=== PATIENT | female | born 1995 | race Caucasian/White ===

== ENCOUNTER 2023-04-18 10:29 | Day surgery (SDC) | payer BC ==
[~2023-04-18 10:29] MED LIST: Lactated Ringers 1,000 ML IV SCH
[2023-04-18] MEDS ORDERED: Ondansetron 4 MG/2 ML SDV ONE (11:18)
[2023-04-18] MEDS ORDERED: Propofol 200 MG/20 ML SDV ONE ×2 (11:18→11:21)
[2023-04-18] MEDS ORDERED: Lidocaine 2% 100 MG/5 ML Syringe ONE (11:19)
[2023-04-18] MEDS ORDERED: fentaNYL 100 MCG/2 ML SDV ONE (11:23)
[2023-04-18] MEDS ORDERED: Succinylcholine/Sod PF 100 MG/5 ML SYRINGE IV ONE (11:40)
[2023-04-18] MEDS ORDERED: Esmolol 100 MG/10 ML SDV ONE (11:41)
[2023-04-18] MEDS ORDERED: Lactated Ringers 1,000 ML IV SCH (12:00)
[2023-04-18 13:17] VITALS: BP 101/75; PULSE 83
== END 2023-04-18 13:00 | disposition home or self-care (01) ==
LOC: MW.SDS 10:29
PROVIDERS: ATTEND Surgery
DX: K29.50 Unspecified chronic gastritis without bleeding (principal); K21.00 Gastro-esophageal reflux disease with esophagitis, without bleeding; K31.89 Other diseases of stomach and duodenum; D64.9 Anemia, unspecified; E66.3 Overweight; Z79.899 Other long term (current) drug therapy; Z82.49 Family history of ischemic heart disease and other diseases of the circulatory system; Z83.2 Family history of diseases of the blood and blood-forming organs and certain disorders involving the immune mechanism
CPT/HCPCS: 36415; 43239; 84703; J0330; J2405; J2704; J3010; J3490; J7120; 00731

== ENCOUNTER 2025-03-15 17:55 | Emergency (ER) | payer BC ==
[2025-03-15 19:23] VITALS: BP 140/95; PULSE 96
== END 2025-03-15 19:23 | disposition home or self-care (01) ==
LOC: MW.ED 17:55
DX: D64.9 Anemia, unspecified (principal); T45.4X5A Adverse effect of iron and its compounds, initial encounter; R51.9 Headache, unspecified; K21.9 Gastro-esophageal reflux disease without esophagitis; Z79.899 Other long term (current) drug therapy
CPT/HCPCS: 99283; J7030; 99282